=== PATIENT | female | born 1980 | race Two or more races ===

== ENCOUNTER 2024-12-03 18:42 | Emergency (ER) | payer OTHER ==
[~2024-12-03] VITALS: Ht 157.5 cm; Wt 59.0 kg
[2024-12-03] MEDS ORDERED: HYDROCODONE/CHLORPHEN P-STIREX 5 ML ML PO STA (20:49)
[2024-12-03] MEDS ORDERED: KETOROLAC TROMETHAMINE 60 MG VIAL IM STA (20:49)
[2024-12-03] MEDS ORDERED: KETOROLAC TROMETHAMINE 60 MG VIAL IM ONE (20:55)
== END 2024-12-03 21:11 | disposition home or self-care (01) ==
LOC: ER 18:43
DX: J06.9 Acute upper respiratory infection, unspecified (principal); R05.9 Cough, unspecified; Z88.0 Allergy status to penicillin

== ENCOUNTER 2025-02-04 12:59 | Emergency (ER) | payer OTHER ==
[~2025-02-04] VITALS: Ht 157.5 cm; Wt 47.2 kg
[2025-02-04] MEDS ORDERED: LISINOPRIL5 MG PO (13:33)
[2025-02-04] MEDS ORDERED: HYDROCHLOROTHIA25 MG PO (13:34)
[2025-02-04] MEDS ORDERED: ORPHENADRINE CITRATE 30 MG/ML AMPUL ONE (16:21)
[2025-02-04] MEDS ORDERED: ORPHENADRINE CITRATE 30 MG/ML AMPUL IM ONE (16:30)
[2025-02-04] MEDS ORDERED: NORFLEX100MG PO (16:30)
== END 2025-02-04 17:09 ==
LOC: ER 13:07
DX: M54.50 Low back pain, unspecified (principal); Z88.0 Allergy status to penicillin; Z88.6 Allergy status to analgesic agent

== ENCOUNTER 2025-05-13 13:12 | Emergency (ER) | payer OTHER ==
[~2025-05-13] VITALS: Ht 157.5 cm; Wt 54.4 kg
[~2025-05-13 13:12] MED LIST: HYDROCHLOROTHIA25 MG PO; LISINOPRIL5 MG PO; NORFLEX100MG PO
[2025-05-13] MEDS ORDERED: GUAIFENESIN 200 MG/10 ML BLIST.PACK PO ONE (15:45)
[2025-05-13] MEDS ORDERED: ACETAMINOPHEN 500 MG GEL..CAP PO ONE (15:45)
[2025-05-13 17:38] LABS: COVID-19 AG NEGATIVE (NEGATIVE)
== END 2025-05-13 18:47 | disposition home or self-care (01) ==
LOC: ER 13:12
PROVIDERS: General Practice
DX: B34.9 Viral infection, unspecified (principal); J00 Acute nasopharyngitis [common cold]; R05.9 Cough, unspecified; Z20.822 Contact with and (suspected) exposure to COVID-19; I10 Essential (primary) hypertension; Z88.0 Allergy status to penicillin; Z88.6 Allergy status to analgesic agent

== ENCOUNTER 2025-08-08 19:10 | Emergency (ER) | payer OTHER ==
[~2025-08-08] VITALS: Ht 157.5 cm; Wt 46.7 kg
[2025-08-08] MEDS ORDERED: DEXAMETHASONE SODIUM PHOSPHATE 4 MG/ML VIAL ONE (21:22)
[2025-08-08] MEDS ORDERED: ORPHENADRINE CITRATE 30 MG/ML AMPUL ONE (21:22)
[2025-08-08] MEDS ORDERED: ACETAMINOPHEN 500 MG GEL..CAP PO ONE ×2 (21:22→21:30)
[2025-08-08] MEDS ORDERED: DEXAMETHASONE SODIUM PHOSPHATE 4 MG/ML VIAL IM ONE (21:30)
[2025-08-08] MEDS ORDERED: ORPHENADRINE CITRATE 30 MG/ML AMPUL IM ONE (21:30)
[2025-08-08] MEDS ORDERED: MEDROLPACK PO (23:14)
== END 2025-08-08 23:26 ==
LOC: ER 19:10
DX: M54.89 Other dorsalgia (principal); M51.369 Other intervertebral disc degeneration, lumbar region without mention of lumbar back pain or lower extremity pain; I10 Essential (primary) hypertension; Z88.6 Allergy status to analgesic agent; Z88.0 Allergy status to penicillin